=== PATIENT | male | born 1975 | race Caucasian/White ===

== ENCOUNTER → 2018-03-04 | Outpatient (CLI) | payer SELFPAY ==
--- NOTE | 2018-03-04 13:38 | Diagnostic Imaging Report ---
INDICATION: Right testicular pain. FINDINGS: Right testicle measures 3.6 x 2.0 x 2.8 cm and the left testicle measures 3.5 x 2.3 x 2.4 cm. Both testes demonstrate homogeneous echotexture. No discrete mass is seen. There is blood flow to both testes. No hydrocele or varicocele is seen. The epididymides are unremarkable. IMPRESSION: Unremarkable scrotal ultrasound. Dictated by: Dictated on workstation # [id number]
== END ==
LOC: RAD 12:43
PROVIDERS: ATTEND Nurse Practitioner Family
DX: N50.811 Right testicular pain (principal)
CPT/HCPCS: 76870